=== PATIENT | female | born 1985 ===

== ENCOUNTER → 2017-06-28 | Outpatient (REF) | LOC: WSOH 07:59 → WSPT 09:00 | DX: Z02.89 Encounter for other administrative examinations (principal) ==

== ENCOUNTER → 2017-06-30 | Outpatient (REF) | LOC: WSOH 11:30 | DX: Z02.89 Encounter for other administrative examinations (principal) ==

== ENCOUNTER → 2017-07-05 | Outpatient (REF) | LOC: WSOH 16:02 | DX: Z11.1 Encounter for screening for respiratory tuberculosis (principal) ==